=== PATIENT | female | born 1960 | race Caucasian/White ===

== ENCOUNTER 2020-03-24 12:28 | Outpatient (CLI) | payer OTHER ==
--- NOTE | 2020-04-04 14:49 | Mammography Report ---
BILATERAL DIGITAL SCREENING MAMMOGRAM 3D/2D: 03/24/2020 CLINICAL: Family history of breast cancer. Routine screening. No prior exams were available for comparison. The tissue of both breasts is heterogeneously dense. T his may lower the sensitivity of mammography. There is an oval high density asymmetry with a circumscribed margin in the left breast posterior dept h medial region seen on the craniocaudal view only. No other significant masses, calcifications, or other findings are seen in either breast. IMPRESSION: INCOMPLETE: NEEDS ADDITIONAL IMAGING EVALUATION The oval high density asymmetry in the left breast is indeterminate. Additional views with possible ultrasound are recommended. This exam was interpreted at Station ID: [id number]. NOTE: For mammograms, a report in lay terms will be sent to the patient. Approximately 15% of breast malignancies will not be visualized mammographically. In the management of a palpable breast mass, a negative mammogram must not discourage biopsy of a clinically suspicious lesion. Electronically Signed By: Noreen street/penrad:04/04/2020 11:54:36 ACR BI-RADS Category 0: Incomplete 3340F PARENCHYMAL PATTERN: (D) - The breast(s) demonstrate(s) heterogeneously dense fibroglandular parkhurramy ma. BI-RADS CATEGORY: (0) - 0 Mammo and [place] [id number] Immediate follow-up LATERALITY: (B)
== END 2020-03-24 12:29 | disposition home or self-care (01) ==
LOC: DI.N 12:28
DX: Z12.31 Encounter for screening mammogram for malignant neoplasm of breast (principal); Z80.3 Family history of malignant neoplasm of breast; R92.8 Other abnormal and inconclusive findings on diagnostic imaging of breast
CPT/HCPCS: 77063; 77067

== ENCOUNTER 2020-04-26 10:12 | Emergency (ER) | payer OTHER ==
[2020-04-26] MEDS ORDERED: OXYMETAZOLINE HCL 100 SPRAYS BOTTLE NAS STA (10:34)
--- NOTE | 2020-04-26 11:08 | ED Physician Documentation ---
PD HPI HEENT - Stated complaint Stated Complaint: NOSE BLEED - Chief complaint Chief Complaint: Heent - History obtained from History obtained from: Patient - History of Present Illness Timing - onset: Today Timing - duration: Hours Timing - details: Abrupt onset, Still present Location: Nose Improves: Other (clamp) Worsens: Swalllowing Associated symptoms: No: Fever, Congestion Similar symptoms before: Diagnosis (epistaxis) Recently seen: Surgery - Additional information Additional information: 59-year-old female on Coumadin for a titanium valve has had an ear nose and throat procedure to her turbinates bilaterally done 2 days ago. She is now developed some bleeding as her INR is come back up to 2.4 and she is having a sensation of choking on clots. She placed some cotton into her nose it has not resolved the bleeding. She is come to the emergency department for evaluation and treatment. She was concerned about the length of time it would take her to get the medical deal to see her ENT and she was worried about the amount of bleeding she was doing. Review of Systems Constitutional: denies: Fever Eyes: denies: Decreased vision Ears: denies: Ear pain Nose: reports: Epistaxis Throat: denies: Sore throat Respiratory: denies: Dyspnea, Cough GI: denies: Vomiting PD PAST MEDICAL HISTORY - Present Medications Home Medications: Ambulatory Orders Medication Instructions Recorded Confirmed Cephalexin [Keflex] 500 mg PO Q6H #28 capsule 04/26/20 - Allergies Allergies/Adverse Reactions: Allergies Allergy/AdvReac Type Severity Reaction Status Date / Time No Known Drug Allergies Allergy Verified 04/26/20 10:23 PD ED PE NORMAL - Vitals Vital signs reviewed: Yes (Tachycardic and hypertensive) - General General: Alert and oriented X 3, Well developed/nourished, Other (Anxious appearing female with blood from both nares.) - HEENT HEENT: Atraumatic, PERRL, EOMI, Other (There is blood on the anterior turbinates bilaterally and draining down the pharynx posteriorly more on the right than the left.) - Neck Neck: Supple, no meningeal sign, No bony TTP - Respiratory Respiratory: No respiratory distress - Neuro Neuro: Alert and oriented X 3, area representative 2-12 intact, No motor deficit, No sensory deficit, Normal speech Eye Opening: Spontaneous Motor: Obeys Commands Verbal: Oriented GCS Score: 15 - Psych Psych: Normal affect, Other (Mood is anxious) Results - Vitals Vitals: Vital Signs - 24 hr 04/26/20 04/26/20 10:15 10:30 Temperature 36 C L Heart Rate 107 H 86 Respiratory 20 20 Rate Blood Pressure 138/75 H 147/92 H O2 Saturation 100 100 Oxygen O2 Source Room air Procedures - Epistaxis Site: Both, Anterior Preparation: Afrin Treatment: Anterior rhinorocket Other: Observed - no bleeding, Pt tolerated well, Antibiotics prescribed, Referred to ENT PD MEDICAL DECISION MAKING - ED course Complexity details: considered differential, d/w patient ED course: 59-year-old female with a recent surgical procedure on her nose is on Coumadin and she has developed a nosebleed that has been particularly distressing to her when she feels like she is going to choke on her clots. We were able to control the bleeding with bilateral Rhino Rocket's and I have talked to the patient's ENT DrRc Cobb and he recommends having the patient return for removal of the right-sided packing tomorrow and to leave the rest in for him to remove on Friday and he recommends prophylactic Keflex. Departure - Departure Disposition: Home, Self Care Clinical Impression: Epistaxis Condition: Stable Instructions: ED Nosebleed Follow-Up: Bob Lambert MD [Primary Care Provider] - Prescriptions: Cephalexin [Keflex] 500 mg PO Q6H #28 capsule Comments: Return tomorrow for packing removal.
[2020-04-26 11:21] VITALS: BP 134/78
== END 2020-04-26 11:32 | disposition home or self-care (01) ==
LOC: ED 10:12
DX: R04.0 Epistaxis (principal); Z98.890 Other specified postprocedural states; Z95.2 Presence of prosthetic heart valve; Z79.01 Long term (current) use of anticoagulants; F41.8 Other specified anxiety disorders
CPT/HCPCS: 30901; 99282; 99284; A9270

== ENCOUNTER 2020-04-26 21:17 | Emergency (ER) | payer OTHER ==
[2020-04-26] MEDS ORDERED: LORazepam 1 MG TABLET PO STA (21:42)
--- NOTE | 2020-04-26 21:48 | ED Physician Documentation ---
History of Present Illness - Stated complaint Stated Complaint: CONGESTION, HARD TO SWALLOW - Chief complaint Chief Complaint: Heent - History obtained from History obtained from: Patient - Additonal information Additional information: 59-year-old female presents to the emergency department with a chief complaint of difficulty swallowing and feeling of pressure and fullness in her ears. She was seen in this ER earlier this morning for bilateral nosebleeds after recent ear nose throat surgical procedure. Unfortunately she is on Coumadin and therefore they had a difficult time getting the bleeding to stop. Ultimately she did require bilateral nasal packing. My previous colleague did consult with her ENT Dr. Bubba Cobb. He recommended packing overnight and for the patient to return tomorrow in the morning to have the right-sided packing removed. However since going home patient feels that she cannot swallow at adequately and is quite distressed by this event. However on exam she is not hypoxic or tachypneic. She is speaking in full sentences. She is tolerating her oral secretions and is able to sip liquids. Review of Systems Constitutional: reports: Reviewed and negative Eyes: reports: Reviewed and negative Ears: reports: Reviewed and negative Nose: reports: Epistaxis Throat: reports: Sore throat Cardiac: reports: Reviewed and negative Respiratory: reports: Reviewed and negative GI: reports: Reviewed and negative : reports: Reviewed and negative Skin: reports: Reviewed and negative Musculoskeletal: reports: Reviewed and negative Neurologic: reports: Reviewed and negative PD PAST MEDICAL HISTORY - Past Medical History Cardiovascular: High cholesterol, Valve disorder Respiratory: None Neuro: CVA, Migraines Endocrine/Autoimmune: None GI: None FINISHER WALLBOARD AND PLASTERBOARD: None : None HEENT: Chronic sinusitis Psych: None Musculoskeletal: None Derm: None - Past Surgical History Past Surgical History: Yes General: Gastric surgery Cardiovascular: Valve replacement HEENT: Other - Present Medications Home Medications: Ambulatory Orders Medication Instructions Recorded Confirmed Atorvastatin [Lipitor] 20 mg ORAL DAILY 04/26/20 04/26/20 Lactobacillus Acidophilus 1 tab ORAL DAILY 04/26/20 04/26/20 [Probiotic Acidophilus] [place]-3/Dha/Epa/Fish Oil [Fish Oil 1 cap ORAL DAILY 04/26/20 04/26/20 1,000 mg Softgel] Warfarin [Coumadin] 15 mg PO DAILY 04/26/20 04/26/20 - Allergies Allergies/Adverse Reactions: Allergies Allergy/AdvReac Type Severity Reaction Status Date / Time No Known Drug Allergies Allergy Verified 04/26/20 10:23 - Social History Does the pt smoke?: No Smoking Status: Never smoker Does the pt drink ETOH?: Yes Does the pt have substance abuse?: No - Immunizations Immunizations are current?: Yes PD ED PE EXPANDED - General General: Alert, Anxious - HEENT HEENT: PERRL, Pupils unequal, EOMI, Nasal congestion (Patient has bilateral nares with Rhino Rocket packing. Rhino Rocket's appear well seated without evidence of bleeding through the anterior nares or posterior oropharynx.), Moist mucous membranes, Pharynx normal (Normal swallow. Posterior oropharynx without erythema. No bleeding seen in posterior oropharynx. Neck is supple without lymphadenopathy. Normal phonation. Full range of motion.) Results - Vitals Vitals: Vital Signs - 24 hr 04/26/20 21:26 Temperature 36.6 C Heart Rate 70 Respiratory 20 Rate Blood Pressure 134/74 H O2 Saturation 99 Oxygen O2 Source Room air PD MEDICAL DECISION MAKING - ED course Complexity details: reviewed results, d/w patient ED course: This is a well-appearing though anxious 59-year-old female who presents to the emergency department with a feeling of difficulty swallowing and fullness and pressure in her ears and throat. This follows a being having bilateral nasal packing placed for epistaxis while on Coumadin. On exam she has no signs of airway involvement. She has normal pulmonary auscultation without hypoxia. She swallows normally and has no dysphonia. Given the presence of bilateral nasal packing she likely has eustachian tube dysfunction causing the pressure and fullness she reports. She does not have any further signs of recurrent epistaxis while the packing is in place. At this time I believe the root of her visit here is likely situational anxiety related to the nasal packing. I have given her 2 mg of Ativan orally and willdc her home. I do recommend that she sleep upright on 2-3 pillows. She will return here tomorrow morning to have her packing removed epistaxis reevaluated Departure - Departure Disposition: 01 Home, Self Care Clinical Impression: Situational anxiety Condition: Stable Record reviewed to determine appropriate education?: Yes Comments: Patricia your nose is no longer bleeding when I look in the back of your throat. However having bilateral nasal packing in place can be very uncomfortable. It often causes a sensation of fullness in the ears and it can make the sensation of swallowing very difficult. However I want to reassure you that you are swallowing well and your airway is not at risk. Please return here to the emergency department tomorrow morning around [address] Jarvis. He will remove the packing as appropriate and reevaluate you for bleeding. If at any point you feel that your symptoms are not well managed at home please return here. The single dose of Ativan I gave you should help reduce your anxiety and make you sleepy.
[2020-04-26 21:56] VITALS: BP 121/73
== END 2020-04-26 21:55 | disposition home or self-care (01) ==
LOC: ED 21:17
DX: F41.8 Other specified anxiety disorders (principal)

== ENCOUNTER 2020-04-27 08:59 | Emergency (ER) | payer OTHER ==
--- NOTE | 2020-04-27 09:51 | ED Physician Documentation ---
PD HPI HEENT - Stated complaint Stated Complaint: PACKING REMOVAL/RETURN VISIT - Chief complaint Chief Complaint: Heent - History obtained from History obtained from: Patient - History of Present Illness Timing - onset: Yesterday Timing - duration: Days (1) Timing - details: Abrupt onset, Now resolved Location: Nose Improves: Other (packing) Worsens: Other (coumadin) Associated symptoms: No: Fever, Congestion, Swollen nodes, Facial swelling, Headache, Cough Similar symptoms before: Diagnosis (epistaxis) Recently seen: Emergency Dept, Surgery - Additional information Additional information: 59-year-old female who was recently had turbinate surgery done developed epistaxis as she is on Coumadin for a titanium valve and she required packing yesterday. She had bilateral 4-1/2 cm Rhino Rocket's placed with prompt resolution of her epistaxis. She did have some difficulty with the bilateral packing a feeling of suffocation and difficulty swallowing and was seen again in the emergency department last night requiring some Ativan for sleep. She arrives here this morning feeling improved without evidence of any bleeding. Review of Systems Constitutional: denies: Fever Eyes: denies: Decreased vision Ears: reports: Ear pain Nose: reports: Sinus pressure / pain. denies: Rhinorrhea / runny nose, Congestion, Epistaxis Throat: denies: Sore throat Cardiac: denies: Chest pain / pressure, Palpitations Respiratory: denies: Dyspnea, Cough GI: denies: Vomiting PD PAST MEDICAL HISTORY - Past Medical History Cardiovascular: High cholesterol, Valve disorder Respiratory: None Neuro: CVA, Migraines Endocrine/Autoimmune: None GI: None FACILITY TECHNICIAN: None : None HEENT: Chronic sinusitis Psych: None Musculoskeletal: None Derm: None - Past Surgical History Past Surgical History: Yes General: Gastric surgery Cardiovascular: Valve replacement HEENT: Other - Present Medications Home Medications: Ambulatory Orders Medication Instructions Recorded Confirmed Atorvastatin [Lipitor] 20 mg ORAL DAILY 04/26/20 04/26/20 Lactobacillus Acidophilus 1 tab ORAL DAILY 04/26/20 04/26/20 [Probiotic Acidophilus] [place]-3/Dha/Epa/Fish Oil [Fish Oil 1 cap ORAL DAILY 04/26/20 04/26/20 1,000 mg Softgel] Warfarin [Coumadin] 15 mg PO DAILY 04/26/20 04/26/20 - Allergies Allergies/Adverse Reactions: Allergies Allergy/AdvReac Type Severity Reaction Status Date / Time No Known Drug Allergies Allergy Verified 04/27/20 09:15 - Social History Does the pt smoke?: No Smoking Status: Never smoker Does the pt drink ETOH?: Yes Does the pt have substance abuse?: No - Immunizations Immunizations are current?: Yes PD ED PE NORMAL - Vitals Vital signs reviewed: Yes (normal ) - General General: Alert and oriented X 3, No acute distress, Well developed/nourished - HEENT HEENT: Atraumatic, PERRL, EOMI, Other (packing is removed without evidence of recurrence of bleeding. There is a single area on the left side with a tiny spot of blood without oozing. No posterior drainage of blood) - Neck Neck: Supple, no meningeal sign, No bony TTP - Respiratory Respiratory: No respiratory distress - Derm Derm: Normal color, Warm and dry, No rash - Extremities Extremities: No deformity, No edema - Neuro Neuro: Alert and oriented X 3, sales representative health insurance 2-12 intact, No motor deficit, No sensory deficit, Normal speech Eye Opening: Spontaneous Motor: Obeys Commands Verbal: Oriented GCS Score: 15 - Psych Psych: Normal mood, Normal affect Results - Vitals Vitals: Vital Signs - 24 hr 04/27/20 09:09 Temperature 36.7 C Heart Rate 91 Respiratory 16 Rate Blood Pressure 127/64 O2 Saturation 100 Oxygen O2 Source Room air PD MEDICAL DECISION MAKING - ED course Complexity details: re-evaluated patient, considered differential, d/w patient ED course: 59-year-old female with bilateral turbinate bleeding after turbinectomy who is on Coumadin had some difficulty tolerating bilateral packing but after Ativan last night she was able to sleep. She has not had any evidence of recurrent bleeding the packing is removed without recurrence of bleeding. Departure - Departure Disposition: 01 Home, Self Care Clinical Impression: Epistaxis Condition: Stable Instructions: ED Nosebleed Follow-Up: Bob Lambert MD [Primary Care Provider] -
[2020-04-27 10:23] VITALS: BP 116/64
== END 2020-04-27 10:21 | disposition home or self-care (01) ==
LOC: ED 08:59
DX: Z48.00 Encounter for change or removal of nonsurgical wound dressing (principal)
CPT/HCPCS: 99281; 99284

== ENCOUNTER 2021-08-13 08:54 | Emergency (ER) | payer OTHER ==
--- NOTE | 2021-08-13 10:33 | ED Physician Documentation ---
PD HPI OPHTHO - Stated complaint Stated Complaint: EYE ISSUES - Chief complaint Chief Complaint: Heent - History obtained from History obtained from: Patient - Additional information Additional information: The patient comes to the emergency department chief complaint of flashes and floaters in her right eye since yesterday. She states that she did not have any pain but suddenly noticed that something seem to be floating in her peripheral vision. She states this kind of come and gone since the initial onset. She denies any visual changes otherwise. No blindness. No focal neurologic deficits otherwise. She is concerned that she may have had a stroke. She states she has had lens replacements of both eyes due to cataracts and has an medicare biller that she sees in [place] though she cannot remember the name. No history of retinal detachment previously. No recent head trauma. Review of Systems Ten Systems: 10 systems reviewed and negative Constitutional: reports: Reviewed and negative Eyes: reports: Other (Visual change) Ears: reports: Reviewed and negative Nose: reports: Reviewed and negative Throat: reports: Reviewed and negative Cardiac: reports: Reviewed and negative Respiratory: reports: Reviewed and negative GI: reports: Reviewed and negative : reports: Reviewed and negative Skin: reports: Reviewed and negative Musculoskeletal: reports: Reviewed and negative Neurologic: reports: Reviewed and negative Psychiatric: reports: Reviewed and negative Endocrine: reports: Reviewed and negative Immunocompromised: reports: Reviewed and negative PD PAST MEDICAL HISTORY - Past Medical History Cardiovascular: High cholesterol, Valve disorder Respiratory: None Neuro: CVA, Migraines Endocrine/Autoimmune: None GI: None 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 : None HEENT: Chronic sinusitis Psych: None Musculoskeletal: None Derm: None - Past Surgical History Past Surgical History: Yes General: Gastric surgery Cardiovascular: Valve replacement HEENT: Other - Present Medications Home Medications: Ambulatory Orders Medication Instructions Recorded Confirmed Atorvastatin [Lipitor] 20 mg ORAL DAILY 04/26/20 08/13/21 Lactobacillus Acidophilus 1 tab ORAL DAILY 04/26/20 08/13/21 [Probiotic Acidophilus] Warfarin [Coumadin] 15 mg PO DAILY 04/26/20 08/13/21 - Allergies Allergies/Adverse Reactions: Allergies Allergy/AdvReac Type Severity Reaction Status Date / Time No Known Drug Allergies Allergy Verified 08/13/21 09:17 - Social History Does the pt smoke?: No Smoking Status: Never smoker Does the pt drink ETOH?: Yes Does the pt have substance abuse?: No - Immunizations Immunizations are current?: Yes PD ED PE NORMAL - Vitals Vital signs reviewed: Yes - General General: Alert and oriented X 3, No acute distress, Well developed/nourished - HEENT HEENT: Atraumatic, PERRL, EOMI, Moist mucous membranes, Other (No obvious abnormalities on funduscopic exam with the exception of some haziness in the left lower quadrant of the retina on nondilated right eye exam. No conjunctival injection) - Neck Neck: Supple, no meningeal sign - Cardiac Cardiac: RRR, No murmur, Strong equal pulses - Derm Derm: Normal color, Warm and dry, No rash - Extremities Extremities: No deformity - Neuro Neuro: Alert and oriented X 3, consumer services advisor 2-12 intact, No motor deficit, No sensory deficit, Normal speech - Psych Psych: Normal mood, Normal affect Results - Vitals Vitals: Vital Signs - 24 hr 08/13/21 08/13/21 09:14 12:04 Temperature 36.4 C L 36.5 C Heart Rate 85 66 Respiratory 14 14 Rate Blood Pressure 150/73 H 148/89 H O2 Saturation 99 100 Oxygen O2 Source Room air - Rads (name of study) CT head Radiology: Final report received, EMP read indepedently, See rad report (No acute findings) PD MEDICAL DECISION MAKING - ED course Complexity details: reviewed results, re-evaluated patient, considered differential, d/w patient ED course: I discussed with the patient that I am most suspicious of a retinal detachment, but have sent this patient for head CT. Visual acuity was 20/[address] Patient's CT was unremarkable. I discussed the case with her medicare biller Dr. Fili Coleman in [place] and he requested that the patient come over to the office for further evaluation, stating he felt she likely had a vitreous Separation. Dr. Coleman staff requested that the patient come over at 145 this afternoon, which I did relate to the patient's. We discussed the importance of keeping this appointment. Departure - Departure Disposition: 01 Home, Self Care Clinical Impression: Vitreous detachment of right eye Condition: Stable Comments: Your case has been discussed with Dr. Coleman at [facility], who would like to see you at 1:45 this afternoon in his clinic. He suspects you have a vitreous or retinal detachment but will need to do a full eye exam to determine this with certainty. Discharge Date/Time: 08/13/21 12:05
--- NOTE | 2021-08-13 11:14 | CT Report ---
PROCEDURE: HEAD WO INDICATIONS: visual change R eye TECHNIQUE: Noncontrast 4.5 mm thick angled axial sections acquired from the foramen magnum to the vertex. For r adiation dose reduction, the following was used: automated exposure control, adjustment of mA and/or kV according to patient size. COMPARISON: None. FINDINGS: Image quality: Excellent. CSF spaces: Basal cisterns are patent. No extra-axial fluid collections. Ventricles are normal in size and shape. Brain: No midline shift. No intracranial masses or hemorrhage. Subtle hypodensity involving the rig ht posterior parieto-occipital region is seen with poor torres-white differentiation. Skull and face: Calvarium and visualized facial bones are intact, without suspicious lesions. Sinuses: Visualized sinuses and mastoids are clear. IMPRESSION: 1. No CT evidence of acute intracranial bleed, midline shift or mass effect. 2. Hypodensity involving right posterior parietal-occipital region with poor torres-white differentiati on concerning for age-indeterminate infarction in this area. MRI of brain can be done for further janel luation of this region if indicated. Reviewed by: Fortino Goncalves MD on 08/13/2021 11:13 AM PDT Approved by: Fortino Goncalves MD on 08/13/2021 11:13 AM PDT Station ID: [id number]
[2021-08-13 12:06] VITALS: BP 148/89
== END 2021-08-13 12:05 | disposition home or self-care (01) ==
LOC: ED 08:54
DX: H43.811 Vitreous degeneration, right eye (principal)
CPT/HCPCS: 99283; 99284